=== PATIENT | female | born 1955 | race Asian ===

== ENCOUNTER → 2017-08-15 | Outpatient (CLI) | payer OTHER ==
--- NOTE | 2017-08-15 16:24 | Diagnostic Imaging Report ---
PROCEDURE:US LIVER COMPARISON:Patients [facility], US, US LIVER, 07/03/2016, 9:37. Patients [facility], US, US LIVER, 01/20/2017, 8:17. INDICATIONS:HEPATITIS B INFECTION TECHNIQUE: Juarez-scale and color Doppler transverse and longitudinal images of the right upper quadrant of the abdomen were obtained. FINDINGS: Liver: 11.7 cm in right mid-clavicular line. The echotexture is normal. No masses. Main portal vein: 0.9 cm with hepatopetal flow Gallbladder: Present. No evidence of mass, gallstone, gallbladder wall thickening, or pericholecystic fluid Common Bile Duct: 0.7 cm Sonographic Hernandez's sign: Negative Right kidney: Measures 10.1 cm in length. Normal echogenicity. No solid masses. There is central pelviectasis, increased compared to previous exam. No caliectasis. Pancreas: The visualized portions are unremarkable. Inferior vena cava: Patent Aorta: Within normal limits Ascites: None in the right upper quadrant of the abdomen. CONCLUSION: 1. Normal liver. 2. Increasing central pelviectasis of the right kidney may be the result of bladder distention. Dedicated renal ultrasound for further characterization. Dictated by: Arthur Blackburn M.D. on 08/15/2017 at 16:27 Electronically approved by: Arthur Blackburn M.D. on 08/15/2017 at 16:27
== END ==
LOC: US 13:35
PROVIDERS: ATTEND Internal Medicine Gastroenterology
DX: B19.10 Unspecified viral hepatitis B without hepatic coma (principal)
CPT/HCPCS: 76705

== ENCOUNTER → 2018-01-13 | Outpatient (CLI) | payer OTHER ==
[~2018-01-13] MED LIST: IOPAMIDOL 370 MG/ML 200 ML INFUS..BTL INJ ONE; SODIUM CHLORIDE 0.9% 50ML 50 ML ONE
[2018-01-13 11:26] LABS: BLOOD UREA NITROGEN 19 mg/dL (7-26); BUN/CREATININE RATIO 27 (6-25); EST GLOMERULAR FILTRATION RATE > 60 ML/MIN (60-)
--- NOTE | 2018-01-13 14:19 | Diagnostic Imaging Report ---
EXAM: CT of the abdomen and pelvis WITH contrast HISTORY: Right lower quadrant abdominal pain COMPARISON: None. TECHNIQUE: The abdomen and pelvis were scanned utilizing a multidetector helical scanner. Coronal and sagittal reformats are provided. PROTOCOL: Routine IV CONTRAST: 100 cc of Isovue-370. ORAL CONTRAST: Water RADIATION DOSE: Total DLP: 670.74 mGy*cm Estimated effective dose: (DLP x 0.015 x size factor) Dose modulation, iterative reconstruction, and/or weight based adjustment of the mA/kV was utilized to reduce the radiation dose to as low as reasonably achievable. COMPLICATIONS: None FINDINGS: LOWER THORAX: The lung bases appear to be in the expiratory phase of respiration. A sliding hiatal hernia, containing the proximal stomach. HEPATOBILIARY: No focal hepatic lesions. No biliary ductal dilatation. The gallbladder is unremarkable. Diffusely decreased attenuation of the liver relative to the spleen. SPLEEN: No splenomegaly. PANCREAS: No discrete focal masses or ductal dilatation. Diffuse parenchymal atrophy. ADRENALS: No discrete adrenal nodule. KIDNEYS/URETERS: No hydronephrosis, stones, or solid mass lesions. PELVIC ORGANS/BLADDER: The uterus is mildly anteflexed. The partially decompressed urinary bladder appears unremarkable. PERITONEUM / RETROPERITONEUM: No free air or fluid. LYMPH NODES: No pathologically enlarged lymph node. VESSELS: Scattered atherosclerotic vascular calcifications. GI TRACT: No distention or wall thickening identified. The stomach is decompressed, limiting evaluation. The appendix is normal. BONES: No aggressive osseous lesion or acute fracture. Minimal to mild multilevel degenerative degenerative changes of the visualized spine. SOFT TISSUES: Unremarkable. IMPRESSION: 1. No abnormality to definitively explain the right lower quadrant pain. Specifically, the appendix is normal and there is no urinary tract stone or obstruction. 2. Hepatic steatosis. 3. Moderate sliding hiatal hernia. Signed by: Dr. Ashok Poe D.O., M.M.M. on 01/13/2018 2:16 PM
== END ==
LOC: CT 10:31
PROVIDERS: ATTEND Internal Medicine Gastroenterology
DX: R10.31 Right lower quadrant pain (principal)
CPT/HCPCS: 36415; 74177; 82565; 84520; Q9967

== ENCOUNTER → 2018-07-06 | Outpatient (CLI) | payer OTHER ==
--- NOTE | 2018-07-06 14:03 | Diagnostic Imaging Report ---
EXAM: US LIVER DATE: 07/06/2018 10:58 AM INDICATION: Hepatitis B COMPARISON: CT abdomen and pelvis with contrast 01/13/2018, liver ultrasound 08/15/2017 TECHNIQUE: Transverse and longitudinal kruse scale and color doppler sonographic images of the upper abdomen were obtained. FINDINGS: LIVER 13 cm in the right midclavicular line. Increased echogenicity, normal contour, no masses. GALLBLADDER No stones, wall-thickening or pericholecystic fluid. Negative sonographic Hernandez's sign. BILE DUCTS No intra nor extra-hepatic biliary dilation. Common bile duct measures 0.3 cm PANCREAS: Visualized portions are normal. RIGHT KIDNEY: 10.8 cm Echogenicity: Normal Collecting System: Mild pelviectasis without overt hydronephrosis. Findings similar to CT from 01/13/2018. Stones: None Cyst/Mass: None VESSELS: Aorta: Nonaneurysmal Inferior Vena Cava: Patent Main Portal Vein: 0.7 cm, normal size with hepatopetal flow. FREE FLUID: None IMPRESSION: Increased hepatic parenchymal echogenicity compatible with steatosis. Signed by: Dr. Sanchez Bird M.D. on 07/06/2018 2:00 PM
== END ==
LOC: US 10:51
PROVIDERS: ATTEND Internal Medicine Gastroenterology
DX: B19.10 Unspecified viral hepatitis B without hepatic coma (principal)
CPT/HCPCS: 76705